=== PATIENT | male | born 1965 | race Caucasian/White ===

== ENCOUNTER 2016-06-30 22:41 | Emergency (ER) | payer MEDICARE ==
[2016-06-30 22:41] VITALS: BMI 35.2
[2016-06-30 23:04] VITALS: BP 126/87; PULSE 67; RESP 20; TEMP 98.1
[2016-06-30] MEDS ORDERED: Sodium Chloride 0.9% 1,000 ML IV ONE (23:49)
[2016-07-01 00:12] LABS: BASO % 0.6 % (0.0-2.0); EOS # 0.2 K/uL (0.0-0.7); HEMATOCRIT 41.4 % (35.0-51.0); LYMPH # 2.5 K/uL (1.0-4.3); LYMPH % 36.6 % (20.0-40.0); MEAN CELL VOLUME 86.7 fL (80.0-94.0); MEAN CORPUSCULAR HGB CONC 33.4 g/dL (33.0-37.0); MEAN PLATELET VOLUME 6.6 fL (7.2-11.7); MONO # 0.6 K/uL (0.0-0.8); MONO % 8.1 % (0.0-10.0); NRBC % 0.1 % (0.0-2.0); RED CELL DISTRIBUTION WIDTH 13.1 % (11.5-14.5); WHITE BLOOD COUNT 6.9 K/uL (4.8-10.8)
[2016-07-01 00:22] LABS: CHLORIDE 101 mmol/L (98-107); SODIUM 140 mmol/L (132-148)
[2016-07-01 00:23] LABS: POTASSIUM 4.1 mmol/L (3.6-5.2)
[2016-07-01 00:25] LABS: ALB/GLOB RATIO 1.2 (1.0-2.1); ALKALINE PHOSPHATASE 87 U/L (38-126); AST/SGOT 40 U/L (17-59); BILIRUBIN,TOTAL 0.3 mg/dL (0.2-1.3); BLOOD UREA NITROGEN 18 mg/dL (9-20); CARBON DIOXIDE 28 mmol/L (22-30); GFR AFRICAN-AMERICAN > 60; GLUCOSE,RANDOM 100 mg/dL (75-110); TOTAL PROTEIN 7.9 g/dL (6.3-8.3)
[2016-07-01 00:26] LABS: ALT/SGPT 49 U/L (21-72); CALCIUM 8.6 mg/dl (8.6-10.4)
[2016-07-01 01:44] VITALS: O2SAT 100
--- NOTE | 2016-07-01 03:56 | C.PDOC ---
History Of Present Illness 50 year old male patient presents to the ED c/o blood in stool once a day for 3 days. Patient denies nausea, vomiting, diarrhea, fever, chills, or any other complaints. Chief Complaint (Nursing): GI Problem History Per: Patient History/Exam Limitations: no limitations Onset/Duration Of Symptoms: Days Current Symptoms Are (Timing): Still Present Number Of Bleeding Episodes: Multiple: (x1 a day for 3 days) Severity: Mild Recent travel outside of the [place]: No Past Medical History Reviewed: Historical Data, Nursing Documentation, Vital Signs Vital Signs: Last Vital Signs Temp 98.1 F 06/30/16 22:58 Pulse 67 06/30/16 22:58 Resp 20 07/01/16 01:43 BP 126/87 06/30/16 22:58 Pulse Ox 100 07/01/16 03:58 - Medical History PMH: Anxiety, Depression Family History: States: Unknown Family Hx - Social History Hx Alcohol Use: Yes Hx Substance Use: No - Immunization History Hx Tetanus Toxoid Vaccination: No Hx Influenza Vaccination: No Hx Pneumococcal Vaccination: No Review Of Systems Except As Marked, All Systems Reviewed And Found Negative. Constitutional: Negative for: Fever, Chills Gastrointestinal: Positive for: Other (Blood in stool). Negative for: Nausea, Vomiting, Diarrhea Physical Exam - Physical Exam Appears: Non-toxic, No Acute Distress Skin: Warm, Dry Head: Atraumatic, Normacephalic Eye(s): bilateral: Normal Inspection Cardiovascular: Rhythm Regular, No Murmur Respiratory: Normal Breath Sounds, No Rales, No Rhonchi, No Wheezing Gastrointestinal/Abdominal: Soft Rectal: Normal Exam Neurological/Psych: Oriented x3, Normal Speech, Normal Cognition ED Course And Treatment - Laboratory Results Result Diagrams: 07/01/16 00:08 07/01/16 00:08 O2 Sat by Pulse Oximetry: 100 (Room air) Pulse Ox Interpretation: Normal Medical Decision Making Medical Decision Making: Plans: -IV Fluids -Reassess and disposition On reassessment, patient is resting comfortably, and is in no acute distress. Patient was instructed to follow up with physician/clinic in 1-2 days for further evaluation Disposition - Disposition Referrals: Pasha Branham, [Non-Staff] - Disposition: HOME/ ROUTINE Disposition Time: 12:40 Condition: GOOD Additional Instructions: Thank you for letting us take care of you today. Your provider was Dr. Quiros. You were treated for reported blood in stool. The emergency medical care you received today was directed at your acute symptoms. If you were prescribed any medication, please fill it and take as directed. It may take several days for your symptoms to resolve. Return to the Emergency Department if your symptoms worsen, do not improve, or if you have any other problems. Please contact your doctor or call one of the physicians/clinics you have been referred to that are listed on the Patient Visit Information form that is included in your discharge packet. Bring any paperwork you were given at discharge with you along with any medications you are taking to your follow up visit. Our treatment cannot replace ongoing medical care by a primary care provider (PCP) outside of the emergency department. Thank you for allowing the [email or web address] team to be part of your care today. Follow up with your primary doctor this week for re-evaluation. - Clinical Impression Clinical Impression: Hematochezia - Scribe Statement The provider has reviewed the documentation as recorded by the Madeline schroeder Provider Attestation: Car schroeder All medical record entries made by the Madeline were at my direction and personally dictated by me. I have reviewed the chart and agree that the record accurately reflects my personal performance of the history, physical exam, medical decision making, and the department course for this patient. I have also personally directed, reviewed, and agree with the discharge instructions and disposition.
== END 2016-07-01 01:43 | disposition home or self-care (01) ==
LOC: C.ER 22:41
DX: K92.1 Melena (principal)

== ENCOUNTER 2018-05-16 04:31 | Inpatient (IN) | payer MEDICARE ==
[2018-05-16 04:31] VITALS: BMI 35.2
[2018-05-16] MEDS ORDERED: Sodium Chloride 0.9% 1,000 ML IV ONE (05:13)
--- NOTE | 2018-05-16 05:15 | C.PDOC ---
History Of Present Illness 52 year old male presents to the ED c/o RLQ abdominal pain associated with nausea for the past 3 days. Patient also reports feeling some chest discomfort due to his abdominal pain. Patient denies fever, chills, vomit, diarrhea, dysur ia, hematuria, weakness, numbness. Time Seen by Provider: 05/16/18 05:02 Chief Complaint (Nursing): Abdominal Pain History Per: Patient History/Exam Limitations: no limitations Onset/Duration Of Symptoms: Days (3) Current Symptoms Are (Timing): Still Present Location Of Pain/Discomfort: RLQ Radiation Of Pain To:: Chest Quality Of Discomfort: "Pain" Associated Symptoms: Nausea. denies: Vomiting, Diarrhea Recent travel outside of the [place]: No Additional History Per: Patient Past Medical History Reviewed: Historical Data, Nursing Documentation, Vital Signs Vital Signs: Last Vital Signs Temp 98.8 F 05/16/18 04:41 Pulse 77 05/16/18 04:41 Resp 16 05/16/18 04:41 BP 163/98 H 05/16/18 04:41 Pulse Ox 97 05/16/18 04:41 - Medical History PMH: Anxiety, Depression, HTN Denies: HIV, Chronic Kidney Disease Surgical History: No Surg Hx Family History: States: Unknown Family Hx - Social History Hx Alcohol Use: No Hx Substance Use: No - Immunization History Hx Tetanus Toxoid Vaccination: No Hx Influenza Vaccination: No Hx Pneumococcal Vaccination: No Review Of Systems Constitutional: Negative for: Fever, Chills Cardiovascular: Positive for: Chest Pain. Negative for: Palpitations Respiratory: Negative for: Shortness of Breath Gastrointestinal: Positive for: Nausea, Abdominal Pain. Negative for: Vomiting Musculoskeletal: Negative for: Back Pain Skin: Negative for: Rash Neurological: Negative for: Weakness, Numbness Physical Exam - Physical Exam Appears: Non-toxic, No Acute Distress Skin: Normal Color, Warm, Dry Head: Atraumatic, Normacephalic Eye(s): bilateral: Normal Inspection Oral Mucosa: Moist Neck: Normal ROM, Supple Chest: Symmetrical Cardiovascular: Rhythm Regular, No Friction Rub, No Murmur Respiratory: Normal Breath Sounds, No Rales, No Rhonchi, No Wheezing Gastrointestinal/Abdominal: Bowel Sounds (active), Soft, Tenderness (Mild RLQ), No Guarding, No Rebound Back: No CVA Tenderness Extremity: Normal ROM, No Tenderness, No Swelling Neurological/Psych: Oriented x3, Normal Speech, Normal Cognition Gait: Steady ED Course And Treatment - Laboratory Results Result Diagrams: 05/16/18 05:31 05/16/18 05:31 O2 Sat by Pulse Oximetry: 97 (On RA) Pulse Ox Interpretation: Normal Medical Decision Making Medical Decision Making: Plan: * EKG * CXR * Labs * Pepcid 20 mg IVP * IV fluids * Toradol 30 mg IVP * Zofran 4 mg IVP * UA Disposition - Disposition Disposition Time: 07:00 Condition: STABLE Forms: [facility] (Slovenian) - Clinical Impression Clinical Impression: Abdominal pain - PA / [employer] / Resident Statement MD/DO has reviewed & agrees with the documentation as recorded. - Scribe Statement The provider has reviewed the documentation as recorded by the Scribe Dwight Magallon All medical record entries made by the Scribe were at my direction and personally dictated by me. I have reviewed the chart and agree that the record accurately reflects my personal performance of the history, physical exam, medical decision making, and the department course for this patient. I have also personally directed, reviewed, and agree with the discharge instructions and disposition. Physician Patient Turnover Patient Signed Over To: Augusta Alexander Handoff Comments: Pending CT scan and re-eval
[2018-05-16] MEDS ORDERED: Sodium Chloride 0.9% 1,000 ML ONE (05:32)
[2018-05-16 05:33] LABS: BASO % 0.4 % (0.0-2.0); EOS # 0.2 K/uL (0.0-0.7); EOS % 2.6 % (0.0-4.0); HEMOGLOBIN 13.7 g/dL (12.0-18.0); LYMPH # 1.4 K/uL (1.0-4.3); LYMPH % 18.3 % (20.0-40.0); MEAN CELL VOLUME 87.2 fL (80.0-94.0); MEAN CORPUSCULAR HEMOGLOBIN 30.2 pg (27.0-31.0); MEAN CORPUSCULAR HGB CONC 34.6 g/dL (33.0-37.0); MEAN PLATELET VOLUME 6.2 fL (7.2-11.7); MONO # 0.7 K/uL (0.0-0.8); MONO % 8.8 % (0.0-10.0); NEUT # 5.4 K/uL (1.8-7.0); NEUT % 69.9 % (50.0-75.0); NRBC % 0.1 % (0.0-2.0); RBC 4.53 Mil/uL (4.40-5.90); RED CELL DISTRIBUTION WIDTH 13.2 % (11.5-14.5); WHITE BLOOD COUNT 7.7 K/uL (4.8-10.8)
[2018-05-16 05:42] LABS: URINE BILIRUBIN NEGATIVE (NEGATIVE); URINE CLARITY Hazy (Clear); URINE COLOR Yellow (YELLOW); URINE GLUCOSE (UA) NORMAL (Normal); URINE LEUKOCYTE ESTERASE NEG Leu/uL (Negative); URINE PROTEIN NEGATIVE (NEGATIVE); URINE UROBILINOGEN NORMAL mg/dL (0.2-1.0)
[2018-05-16 05:47] LABS: ALB/GLOB RATIO 1.3 (1.0-2.1); ALBUMIN 4.4 g/dL (3.5-5.0); ALT/SGPT 63 U/L (21-72); AST/SGOT 42 U/L (17-59); BLOOD UREA NITROGEN 17 mg/dL (9-20); GFR NON-AFRICAN AMERICAN > 60; LIPASE 92 U/L (23-300)
[2018-05-16 05:48] LABS: URINE BLOOD NEGATIVE (NEGATIVE)
[2018-05-16] MEDS ORDERED: Morphine 4 MG/ML VIAL IV STA (06:44)
[2018-05-16] MEDS ORDERED: Morphine 4 MG/ML VIAL ONE ×2 (07:01→11:16)
[2018-05-16] MEDS ORDERED: Iohexol 240 (50 ml) PO STA (08:19)
[2018-05-16] MEDS ORDERED: Iohexol 240 (50 ml) ONE (08:29)
[2018-05-16] MEDS ORDERED: Iodixanol 320 MG/ML 100 ML BOTTLE IV ONE (09:55)
--- NOTE | 2018-05-16 11:28 | CT ---
Date of service: 05/16/2018 PROCEDURE: CT Abdomen and Pelvis with contrast HISTORY: RLQ pain COMPARISON: None. TECHNIQUE: Contrast dose: 100 mL Visipaque 320 Radiation dose: Total exam DLP = 1112.66 mGy-cm. This CT exam was performed using one or more of the following dose reduction techniques: Automated exposure control, adjustment of the mA and/or kV according to patient size, and/or use of iterative reconstruction technique. FINDINGS: LOWER THORAX: Unremarkable. LIVER: Unremarkable. No gross lesion or ductal dilatation. GALLBLADDER AND BILE DUCTS: Unremarkable. PANCREAS: Unremarkable. No gross lesion or ductal dilatation. SPLEEN: Unremarkable. ADRENALS: Unremarkable. No mass. KIDNEYS AND URETERS: Cortical scar upper pole right kidney common nonspecific. Nonspecific 11 mm rounded low-attenuation lesion lower pole right kidney, 12 Hounsfield units attenuation. Probable cyst. No renal calculus. No hydronephrosis. VASCULATURE: Unremarkable. No aortic aneurysm. No aortic atherosclerotic calcification or mural plaque present. BOWEL: The appendix is markedly distended up to a diameter of approximately 24 mm. There is fluid and gas within the appendiceal lumen. The wall of the appendix is circumferentially thickened. Periappendiceal fluid and inflammatory change is noted. There is circumferential mural thickening of the terminal ileum, most likely reactive secondary to the adjacent abnormal appendix. There is no bowel obstruction. No other abnormal bowel loops are appreciated. There is no periappendiceal abscess. There is no free intraperitoneal air. APPENDIX: As above PERITONEUM: Unremarkable. No free fluid. No free air. LYMPH NODES: Several mildly enlarged lymph nodes are seen in the gastrohepatic ligament common nonspecific. No generalized retroperitoneal or pelvic lymphadenopathy is seen. Shotty subcentimeter nodes are seen in the small bowel mesenteric and medial to the cecum/ascending colon, likely reactive. BLADDER: Nondistended REPRODUCTIVE: Normal prostate BONES: No acute fracture. OTHER FINDINGS: None. IMPRESSION: Findings consistent with acute uncomplicated appendicitis. No abscess or free air. Presumed reactive changes are noted in the terminal ileum. Incidentally noted is the presence of several mildly enlarged lymph nodes in the gastrohepatic ligament, of uncertain significance. No other acute abnormality. Minor findings as above.
[2018-05-16] MEDS ORDERED: Piperacillin/Tazobact 3.375 gm 100 ML IV STA (11:31)
[2018-05-16] MEDS ORDERED: Piperacillin/Tazobact 3.375 gm 100 ML IVPB ONE ×2 (11:44→16:12)
[2018-05-16] MEDS ORDERED: Morphine 4 MG/ML VIAL IVP PRN (12:38)
[2018-05-16] MEDS ORDERED: Lactated Ringer's 1,000 ML IV SCH ×2 (12:45→18:30)
--- NOTE | 2018-05-16 12:45 | CP.PCM.CON ---
<Kay Melendrez - Last Filed: 05/16/18 13:10> History of Present Illness - History of Present Illness History of Present Illness: General Surgery Dr. Davenport 52 y/o M w/ PMHx HTN, hypoglycemia, anxiety/depression presents to the ED c/o RLQ abd pain. Pt reports pain x3days, non-radiating and constant. Pt admits to similar pain ~20yrs ago when pt was Dx w/ early acute appendicitis and treated conservatively w/ Abx. At that time, pt was instructed to return to the ED if pain should ever return and it never did. Last night pt decided pain was too much and came to the ED for further evaluation. Pt admits to assoc nausea and decreased appetite. Denies F/C, CP, SOB, reflux, vomiting, D/C, dysuria. PMHx: see above Meds: ASA 81mg; pt currently not taking psych and HTN meds due to change in location and new insurance ALL: naproxen PSHx: denies SHx: smokes cigars 2-3/per week; denies EtOH, drug use FHx: noncontributory Review of Systems - Review of Systems All systems: reviewed and no additional remarkable complaints except (see HPI) Past Patient History - Infectious Disease Hx of Infectious Diseases: None - Past Medical History & Family History Past Medical History?: Yes - Past Social History Smoking Status: Current Some Days Smoker - CARDIAC Hx Hypertension: Yes - PULMONARY Hx Respiratory Disorders: No - NEUROLOGICAL Hx Neurological Disorder: No - HEENT Other/Comment: Left eye blind - RENAL Hx Chronic Kidney Disease: No - ENDOCRINE/METABOLIC Hx Endocrine Disorders: No - HEMATOLOGICAL/ONCOLOGICAL Hx Human Immunodeficiency Virus (HIV): No - INTEGUMENTARY Hx Dermatological Problems: No - MUSCULOSKELETAL/RHEUMATOLOGICAL Hx Falls: No - GASTROINTESTINAL Hx Gastrointestinal Disorders: No - GENITOURINARY/GYNECOLOGICAL Hx Genitourinary Disorders: No - PSYCHIATRIC Hx Anxiety: Yes Hx Depression: Yes Hx Substance Use: No - SURGICAL HISTORY Hx Surgeries: Yes Other/Comment: left foot sx - ANESTHESIA Hx Anesthesia: Yes Hx Anesthesia Reactions: No Hx Malignant Hyperthermia: No Meds Allergies/Adverse Reactions: Allergies Allergy/AdvReac Type Severity Reaction Status Date / Time naproxen Allergy Verified 12/01/15 21:37 Physical Exam - Constitutional Appears: Non-toxic, No Acute Distress - Head Exam Head Exam: NORMAL INSPECTION - Eye Exam Eye Exam: Normal appearance - ENT Exam ENT Exam: Mucous Membranes Moist - Respiratory Exam Respiratory Exam: NORMAL BREATHING PATTERN. absent: Accessory Muscle Use, Respiratory Distress - Cardiovascular Exam Cardiovascular Exam: REGULAR RHYTHM. absent: Bradycardia, Tachycardia - GI/Abdominal Exam GI & Abdominal Exam: Distended (mild, obese), Soft, Tenderness (RLQ TTP). absent: Firm, Guarding, Rebound, Rigid - Expanded GI/Abdominal Exam Expanded Expanded GI & Abdominal Exam: Rovsing's Sign, McBurney's Point Tenderness. absent: Obturator Sign, Psoas Sign - Extremities Exam Extremities exam: Positive for: normal inspection - Neurological Exam Neurological exam: Alert, Oriented x3 - Psychiatric Exam Psychiatric exam: Normal Affect, Normal Mood - Skin Skin Exam: Dry, Intact, Normal Color, Warm Results - Vital Signs Recent Vital Signs: Last Vital Signs Temp 98.8 F 05/16/18 04:41 Pulse 60 05/16/18 11:05 Resp 18 05/16/18 11:05 BP 108/67 05/16/18 11:05 Pulse Ox 98 05/16/18 11:05 - Labs Result Diagrams: 05/16/18 05:31 05/16/18 05:31 Labs: Laboratory Results - last 24 hr 05/16/18 05/16/18 05/16/18 05:31 05:31 05:37 WBC 7.7 RBC 4.53 Hgb 13.7 Hct 39.5 MCV 87.2 MCH 30.2 MCHC 34.6 RDW 13.2 Plt Count 191 MPV 6.2 L Neut % (Auto) 69.9 Lymph % (Auto) 18.3 L Cochran % (Auto) 8.8 Eos % (Auto) 2.6 Baso % (Auto) 0.4 Neut # (Auto) 5.4 Lymph # (Auto) 1.4 Cochran # (Auto) 0.7 Eos # (Auto) 0.2 Baso # (Auto) 0.0 Sodium 137 Potassium 3.9 Chloride 102 Carbon Dioxide 26 Anion Gap 13 BUN 17 Creatinine 0.7 L Est GFR ( Amer) > 60 Est GFR (Non-Af Amer) > 60 Random Glucose 111 H Calcium 9.0 Total Bilirubin 0.8 AST 42 ALT 63 Alkaline Phosphatase 109 Total Protein 7.9 Albumin 4.4 Globulin 3.4 Albumin/Globulin Ratio 1.3 Lipase 92 Urine Color Yellow Urine Clarity Hazy Urine pH 5.0 Ur Specific Delta 1.025 Urine Protein Negative Urine Glucose (UA) Normal Urine Ketones Negative Urine Blood Negative Urine Nitrate Negative Urine Bilirubin Negative Urine Urobilinogen Normal Ur Leukocyte Esterase Neg Urine WBC (Auto) 1 Urine RBC (Auto) 1 - Imaging and Cardiology CT scan - abdomen Status: Image reviewed by me, Report reviewed by me Assessment & Plan - Assessment and Plan (Free Text) Assessment: 52 y/o M w/ acute on chronic appendicitis Plan: - NPO - IVF - IV Abx - pain management - anti-emetic - monitor accuchecks for hypoglycemia - encourage OOB to chair/Amb Pt discussed w/ Dr. Ethel Melendrez DO PGY3 <Alfred Davenport - Last Filed: 05/17/18 22:03> Meds - Medications Medications: Current Medications Piperacillin Sod/Tazobactam (Sod 3.375 gm/ Sodium Chloride) 100 mls @ 200 mls/h r IVPB Q6H [facility]; Protocol Last Admin: 05/17/18 19:07 Dose: 200 mls/hr Lactated Ringer's (Lactated Ringer's) 1,000 mls @ 125 mls/hr IV .Q8H MARCELO Last Admin: 05/17/18 19:08 Dose: 125 mls/hr Morphine Sulfate (Morphine) 4 mg IVP Q4 PRN PRN Reason: Pain, severe (8-10) Last Admin: 05/17/18 21:40 Dose: 4 mg Ondansetron HCl (Zofran Inj) 4 mg IVP Q4 PRN PRN Reason: Nausea/Vomiting Last Admin: 05/17/18 08:24 Dose: 4 mg Oxycodone/Acetaminophen (Percocet 5/325 Mg Tab) 1 tab PO Q4H PRN PRN Reason: Pain, moderate (4-7) Stop: 05/19/18 18:30 Results - Vital Signs Recent Vital Signs: Last Vital Signs Temp 99.3 F 05/17/18 15:30 Pulse 92 H 05/17/18 15:30 Resp 20 05/17/18 15:30 BP 126/77 05/17/18 15:30 Pulse Ox 95 05/17/18 15:30 - Labs Result Diagrams: 05/17/18 08:06 05/17/18 08:06 Labs: Laboratory Results - last 24 hr 05/17/18 05/17/18 05/17/18 01:57 06:17 08:06 WBC 9.6 RBC 4.24 L Hgb 12.6 Hct 37.3 MCV 88.0 MCH 29.8 MCHC 33.8 RDW 13.0 Plt Count 207 MPV 6.7 L Sodium Potassium Chloride Carbon Dioxide Anion Gap BUN Creatinine Est GFR ( Amer) Est GFR (Non-Af Amer) POC Glucose (mg/dL) 165 H 137 H Random Glucose Calcium Phosphorus Magnesium 05/17/18 05/17/18 08:06 11:02 WBC RBC Hgb Hct MCV MCH MCHC RDW Plt Count MPV Sodium 133 Potassium 3.8 Chloride 99 Carbon Dioxide 26 Anion Gap 12 BUN 13 Creatinine 0.9 Est GFR ( Amer) > 60 Est GFR (Non-Af Amer) > 60 POC Glucose (mg/dL) 124 H Random Glucose 142 H D Calcium 8.4 L Phosphorus 3.7 Magnesium 1.8 Attending/Attestation - Attestation I have personally seen and examined this patient.: Yes I have fully participated in the care of the patient.: Yes I have reviewed all pertinent clinical information: Yes Notes (Text): Pt was seen and examined at bedside Agree with above note and assessment Pt with abdominal pain and Nausea Abdomen: Soft, Distended, Tender in lower abdomen Labs and Radiology reviewed Ass: Acute on Chronic Appendicitis, Morbid Obesity Plan : NPO, IVF OR for Lap Appendectomy and CHRISTINA Consent IV antibiotics Plan d.w pt in detail. Risk and benefit explained in detail.
[2018-05-16] MEDS: Piperacillin/Tazobact 3.375 GM in Sodium Chloride 100 ML IVPB SCH ×2 (12:54→18:45)
[2018-05-16 13:51] LABS: INR 1.1; PROTHROMBIN TIME 12.5 SECONDS (9.7-12.2)
--- NOTE | 2018-05-16 14:26 | CP.PCM.HP ---
Past Patient History - Infectious Disease Hx of Infectious Diseases: None - Past Medical History & Family History Past Medical History?: Yes - Past Social History Smoking Status: Current Some Days Smoker - CARDIAC Hx Hypertension: Yes - PULMONARY Hx Respiratory Disorders: No - NEUROLOGICAL Hx Neurological Disorder: No - HEENT Other/Comment: Left eye blind - RENAL Hx Chronic Kidney Disease: No - ENDOCRINE/METABOLIC Hx Endocrine Disorders: No - HEMATOLOGICAL/ONCOLOGICAL Hx Human Immunodeficiency Virus (HIV): No - INTEGUMENTARY Hx Dermatological Problems: No - MUSCULOSKELETAL/RHEUMATOLOGICAL Hx Falls: No - GASTROINTESTINAL Hx Gastrointestinal Disorders: No - GENITOURINARY/GYNECOLOGICAL Hx Genitourinary Disorders: No - PSYCHIATRIC Hx Anxiety: Yes Hx Depression: Yes Hx Substance Use: No - SURGICAL HISTORY Hx Surgeries: Yes Other/Comment: left foot sx - ANESTHESIA Hx Anesthesia: Yes Hx Anesthesia Reactions: No Hx Malignant Hyperthermia: No Meds Allergies/Adverse Reactions: Allergies Allergy/AdvReac Type Severity Reaction Status Date / Time naproxen Allergy Verified 12/01/15 21:37 Physical Exam - Constitutional Appears: Well - Head Exam Head Exam: ATRAUMATIC, NORMAL INSPECTION, NORMOCEPHALIC - Eye Exam Eye Exam: EOMI, Normal appearance, PERRL Pupil Exam: NORMAL ACCOMODATION, PERRL - ENT Exam ENT Exam: Mucous Membranes Moist, Normal Exam - Neck Exam Neck exam: Positive for: Normal Inspection - Respiratory Exam Respiratory Exam: Decreased Breath Sounds - Cardiovascular Exam Cardiovascular Exam: REGULAR RHYTHM, +S1, +S2 - GI/Abdominal Exam GI & Abdominal Exam: Diminished Bowel Sounds, Soft - Rectal Exam Rectal Exam: Deferred Results - Vital Signs Recent Vital Signs: Last Vital Signs Temp 98.8 F 05/16/18 13:00 Pulse 68 05/16/18 13:00 Resp 20 05/16/18 13:00 BP 146/81 05/16/18 13:00 Pulse Ox 96 05/16/18 13:00 - Labs Result Diagrams: 05/16/18 05:31 05/16/18 05:31 Labs: Laboratory Results - last 24 hr 05/16/18 05/16/18 05/16/18 05:31 05:31 05:37 WBC 7.7 RBC 4.53 Hgb 13.7 Hct 39.5 MCV 87.2 MCH 30.2 MCHC 34.6 RDW 13.2 Plt Count 191 MPV 6.2 L Neut % (Auto) 69.9 Lymph % (Auto) 18.3 L Gentry % (Auto) 8.8 Eos % (Auto) 2.6 Baso % (Auto) 0.4 Neut # (Auto) 5.4 Lymph # (Auto) 1.4 Gentry # (Auto) 0.7 Eos # (Auto) 0.2 Baso # (Auto) 0.0 PT INR APTT Sodium 137 Potassium 3.9 Chloride 102 Carbon Dioxide 26 Anion Gap 13 BUN 17 Creatinine 0.7 L Est GFR ( Amer) > 60 Est GFR (Non-Af Amer) > 60 Random Glucose 111 H Calcium 9.0 Total Bilirubin 0.8 AST 42 ALT 63 Alkaline Phosphatase 109 Total Protein 7.9 Albumin 4.4 Globulin 3.4 Albumin/Globulin Ratio 1.3 Lipase 92 Urine Color Yellow Urine Clarity Hazy Urine pH 5.0 Ur Specific Heron 1.025 Urine Protein Negative Urine Glucose (UA) Normal Urine Ketones Negative Urine Blood Negative Urine Nitrate Negative Urine Bilirubin Negative Urine Urobilinogen Normal Ur Leukocyte Esterase Neg Urine WBC (Auto) 1 Urine RBC (Auto) 1 Blood Type Antibody Screen 05/16/18 05/16/18 13:31 13:31 WBC RBC Hgb Hct MCV MCH MCHC RDW Plt Count MPV Neut % (Auto) Lymph % (Auto) Gentry % (Auto) Eos % (Auto) Baso % (Auto) Neut # (Auto) Lymph # (Auto) Gentry # (Auto) Eos # (Auto) Baso # (Auto) PT 12.5 H INR 1.1 APTT 33 Sodium Potassium Chloride Carbon Dioxide Anion Gap BUN Creatinine Est GFR ( Amer) Est GFR (Non-Af Amer) Random Glucose Calcium Total Bilirubin AST ALT Alkaline Phosphatase Total Protein Albumin Globulin Albumin/Globulin Ratio Lipase Urine Color Urine Clarity Urine pH Ur Specific Heron Urine Protein Urine Glucose (UA) Urine Ketones Urine Blood Urine Nitrate Urine Bilirubin Urine Urobilinogen Ur Leukocyte Esterase Urine WBC (Auto) Urine RBC (Auto) Blood Type O POSITIVE Antibody Screen Negative
--- NOTE | 2018-05-16 15:11 | RAD ---
Date of service: 05/16/2018 PROCEDURE: CHEST RADIOGRAPH, 1 VIEW HISTORY: abd pain and chest pain COMPARISON: 12/01/2015 FINDINGS: LUNGS: Clear. PLEURA: No pneumothorax or pleural fluid seen. CARDIOVASCULAR: No aortic atherosclerotic calcification present. Normal. OSSEOUS STRUCTURES: No significant abnormalities. VISUALIZED UPPER ABDOMEN: Normal. OTHER FINDINGS: None. IMPRESSION: No active disease.
[2018-05-16] MEDS ORDERED: Rocuronium 10 mg/ml (5 ml) ONE (16:01)
[2018-05-16] MEDS ORDERED: Succinylcholine Chloride 20 mg/ml Syr (5 ml) IV ONE (16:01)
[2018-05-16] MEDS ORDERED: Propofol 10 mg/ml Inj (20 ML) ONE ×2 (16:01→17:30)
[2018-05-16] MEDS ORDERED: Lidocaine/Epinephrine 1% 1:100000 10 ML IJ ONE (16:24)
[2018-05-16] MEDS ORDERED: Bupivacaine 0.25% 20 ML INJ IJ ONE (16:24)
--- NOTE | 2018-05-16 18:33 | PCM.SURG1 ---
Surgeon's Initial Post Op Note - Surgeon's Notes Surgeon: Dr. Davenport Aircraft Electrician: Dr. Melendrez PGY3 Type of Anesthesia: General Endo Pre-Operative Diagnosis: acute on chronic appendictis Operative Findings: see dictation Post-Operative Diagnosis: same Operation Performed: laparoscopic appendectomy Specimen/Specimens Removed: appendix, partial cecum Estimated Blood Loss: EBL {In ML}: 50 Blood Products Given: N/A Drains Used: Lloyd Post-Op Condition: Good Date of Surgery/Procedure: 05/16/18 Time of Surgery/Procedure: 16:20
[2018-05-16] MEDS: Lactated Ringer's 1,000 ML IV SCH (19:30)
[2018-05-17] MEDS: Lactated Ringer's 1,000 ML IV SCH ×5 (00:02→19:08)
[2018-05-17] MEDS: Piperacillin/Tazobact 3.375 GM in Sodium Chloride 100 ML IVPB SCH ×4 (00:03→19:07)
[2018-05-17] MEDS: Morphine 4 MG/ML VIAL IVP PRN ×4 (03:40→21:40)
--- NOTE | 2018-05-17 04:53 | OP ---
PROCEDURE DATE: 05/16/2018 PREOPERATIVE DIAGNOSES: 1. Acute on chronic appendicitis. 2. Dilated appendix, possible appendicular abscess. 3. Peritoneal adhesions, post inflammatory. 4. Morbid obesity. POSTOPERATIVE DIAGNOSES: 1. Acute on chronic phlegmonous appendicitis. 2. Appendicular abscess. 3. Extensive peritoneal adhesions, post inflammatory due to previous appendicitis episode. PROCEDURES DONE: 1. Laparoscopic mobilization of right colon. 2. Laparoscopic drainage of appendicular abscess. 3. Laparoscopic appendectomy. 4. Laparoscopic partial cecectomy. 5. Laparoscopic extensive enterolysis and lysis of adhesions. SURGEON: Alfred Davenport MD MOLD UNLOADER: Kay Melendrez DO, PGY-3 resident. ANESTHESIA: General endotracheal tube anesthesia. ESTIMATED BLOOD LOSS: Around 50 mL. DRAINS: A 19-Monegasque Lloyd drain was placed. COMPLICATIONS: None. INTRAOPERATIVE FINDINGS: The patient had acute on chronic appendicitis with appendicular abscess. The patient also had extensive post-inflammatory adhesions. It took approximately 60 to 80 minutes extra for the routine procedure and mobilization of the right colon was done in order to identify the appendix as well as the ileocecal junction and the appendicular base, and the appendicular abscess was drained. DESCRIPTION OF PROCEDURE: On intraoperative steps, this is a 52-year-old male who was diagnosed with acute appendicitis and dilated appendix, and the patient had previous appendicitis episode 20 years ago. The patient was managed conservatively. The patient was consented for the laparoscopic appendectomy, possible open. Brought to the OR, laid supine on the operating table. After induction of the anesthesia, the abdomen was prepped and draped in the usual sterile fashion. A supraumbilical transverse incision was made using open technique. Peritoneal cavity was entered. Pneumo was created. Another 5-mm and 12-mm ports were placed in the left lower quadrant as well as suprapubic region. The patient was found to have a large phlegmonous mass in the right lower quadrant of the ileum, cecum, appendix and omentum, and partial lysis of adhesion was done. Another extra 5-mm port was placed to facilitate the dissection. Now, the ileum was dissected free from the phlegmonous mass, and the right side of the mobilization of the colon was done in order to identify the anatomy. After the mobilization of the cecum, ascending colon, the whole mass was mobilized medially. Now, the appendicular base as well as appendix was identified. The patient had a big abscess and during the dissection, the abscess was draining and as this was completely evacuated. The suction irrigation of the abscess cavity was done. After that, again enterolysis and extensive lysis of adhesion was done to dissect the appendix of the retroperitoneum as well as the cecum and the ileum. After proper enterolysis and lysis of adhesions, the mesoappendix was resected with a Harmonic scalpel. The appendicular base was extremely thickened and edematous. Now, the decision was made to resect the part of the cecum in order to get the normal healthy margin. Partial cecectomy was done. The appendix was taken out with part of the cecum. It was sent off the table for the pathology. There was a proper hemostasis in each and every part of the procedure. A 19-Monegasque Lloyd drain was placed. Again, suction irrigation of the pelvis, periappendicular area as well as the perihepatic area was done. All the fluid was suctioned out. All the ports were taken under vision. Pneumo was deflated. The drain was secured to the skin. The umbilical port site was closed in two layers, the fascia with 0-Vicryl interrupted sutures and skin with a 4-0 Monocryl. Then, dry sterile dressing was applied. The patient tolerated the procedure well. Count of instrument and gauze was correct. There was no apparent complication. The patient was extubated in OR, sent to the postanesthesia care unit in stable condition. Alfred Davenport MD [place]
[2018-05-17 08:17] LABS: HEMOGLOBIN 12.6 g/dL (12.0-18.0); MEAN CORPUSCULAR HEMOGLOBIN 29.8 pg (27.0-31.0); MEAN CORPUSCULAR HGB CONC 33.8 g/dL (33.0-37.0); MEAN PLATELET VOLUME 6.7 fL (7.2-11.7); RBC 4.24 Mil/uL (4.40-5.90); WHITE BLOOD COUNT 9.6 K/uL (4.8-10.8)
[2018-05-17 08:28] LABS: BLOOD UREA NITROGEN 13 mg/dL (9-20); CALCIUM 8.4 mg/dl (8.6-10.4); GFR NON-AFRICAN AMERICAN > 60
--- NOTE | 2018-05-17 09:26 | CP.PCM.PN ---
Subjective - Date & Time of Evaluation Date of Evaluation: 05/17/18 Time of Evaluation: 09:18 - Subjective Subjective: Surgery: Dr. Davenport Pt seen and examined. s/p lap appy; POD#1. States he feels well and pain is well controlled. Pt admits to tolerating CLD and denies nausea/vomiting. Denies flatus/BM or ambulation. Urinating w/o difficulty. Objective - Vital Signs/Intake and Output Vital Signs (last 24 hours): Temp Pulse Resp BP Pulse Ox 99.5 F 89 20 114/73 94 L 05/17/18 09:12 05/17/18 09:12 05/17/18 09:12 05/17/18 09:12 05/17/18 09:12 Intake and Output: 05/17/18 05/17/18 06:59 18:59 Intake Total 2352.5 Output Total 690 Balance 1662.5 - Medications Medications: Current Medications Piperacillin Sod/Tazobactam (Sod 3.375 gm/ Sodium Chloride) 100 mls @ 200 m ls/hr IVPB Q6H [facility]; Protocol Last Admin: 05/17/18 05:59 Dose: 200 mls/hr Lactated Ringer's (Lactated Ringer's) 1,000 mls @ 125 mls/hr IV .Q8H [facility] Last Admin: 05/17/18 08:26 Dose: 125 mls/hr Morphine Sulfate (Morphine) 4 mg IVP Q4 PRN PRN Reason: Pain, severe (8-10) Last Admin: 05/17/18 08:19 Dose: 4 mg Ondansetron HCl (Zofran Inj) 4 mg IVP Q4 PRN PRN Reason: Nausea/Vomiting Last Admin: 05/17/18 08:24 Dose: 4 mg Oxycodone/Acetaminophen (Percocet 5/325 Mg Tab) 1 tab PO Q4H PRN PRN Reason: Pain, moderate (4-7) Stop: 05/19/18 18:30 - Labs Labs: 05/17/18 08:06 05/17/18 08:06 PT 12.5 SECONDS (9.7-12.2) H 05/16/18 13:31 INR 1.1 05/16/18 13:31 APTT 33 SECONDS (21-34) 05/16/18 13:31 - Constitutional Appears: Well, No Acute Distress - Eye Exam Eye Exam: Normal appearance - ENT Exam ENT Exam: Mucous Membranes Moist - Respiratory Exam Respiratory Exam: NORMAL BREATHING PATTERN - Cardiovascular Exam Cardiovascular Exam: RRR - GI/Abdominal Exam GI & Abdominal Exam: Distended, Soft, Tenderness (around incision sites, dressings C/D/I. Lloyd in place with serosang output ). absent: Guarding - Neurological Exam Neurological Exam: Alert, Awake, Oriented x3 - Skin Skin Exam: Dry, Warm Assessment and Plan - Assessment and Plan (Free Text) Assessment: 52M s/p lap appy; POD#1 Plan: - cont CLD, will advance slowly as pt is slightly distended and hasn't had return of bowel function - cont ABX - monitor drain output - encourage ambulation - d/w Dr. Ethel Walton
--- NOTE | 2018-05-17 15:29 | CP.PCM.PN ---
Subjective - Date & Time of Evaluation Date of Evaluation: 05/17/18 Time of Evaluation: 11:30 - Subjective Subjective: clinically same Objective - Vital Signs/Intake and Output Vital Signs (last 24 hours): Temp Pulse Resp BP Pulse Ox 99.5 F 89 20 114/73 94 L 05/17/18 09:12 05/17/18 09:12 05/17/18 09:12 05/17/18 09:12 05/17/18 09:12 Intake and Output: 05/17/18 05/17/18 06:59 18:59 Intake Total 2352.5 1100 Output Total 690 375 Balance 1662.5 725 - Medications Medications: Current Medications Piperacillin Sod/Tazobactam (Sod 3.375 gm/ Sodium Chloride) 100 mls @ 200 mls/hr IVPB Q6H [facility]; Protocol Last Admin: 05/17/18 13:07 Dose: 200 mls/hr Lactated Ringer's (Lactated Ringer's) 1,000 mls @ 125 mls/hr IV .Q8H [facility] Last Admin: 05/17/18 09:47 Dose: Not Given Morphine Sulfate (Morphine) 4 mg IVP Q4 PRN PRN Reason: Pain, severe (8-10) Last Admin: 05/17/18 14:22 Dose: 4 mg Ondansetron HCl (Zofran Inj) 4 mg IVP Q4 PRN PRN Reason: Nausea/Vomiting Last Admin: 05/17/18 08:24 Dose: 4 mg Oxycodone/Acetaminophen (Percocet 5/325 Mg Tab) 1 tab PO Q4H PRN PRN Reason: Pain, moderate (4-7) Stop: 05/19/18 18:30 - Labs Labs: 05/17/18 08:06 05/17/18 08:06 PT 12.5 SECONDS (9.7-12.2) H 05/16/18 13:31 INR 1.1 05/16/18 13:31 APTT 33 SECONDS (21-34) 05/16/18 13:31
[2018-05-18] MEDS: Piperacillin/Tazobact 3.375 GM in Sodium Chloride 100 ML IVPB SCH ×4 (00:40→19:20)
[2018-05-18] MEDS: Lactated Ringer's 1,000 ML IV SCH ×2 (05:50→19:21)
--- NOTE | 2018-05-18 07:42 | CP.PCM.PN ---
Subjective - Date & Time of Evaluation Date of Evaluation: 05/18/18 Time of Evaluation: 07:39 - Subjective Subjective: General Surgery Dr. Davenport Pt S&E @bedside. no acute events overnight. reports improved pain though continued bloating/distention. tolerating CLD. (+)Flatus (-)BM. Objective - Vital Signs/Intake and Output Vital Signs (last 24 hours): Temp Pulse Resp BP Pulse Ox 98.8 F 97 H 94 H 142/78 91 L 05/18/18 06:25 05/18/18 06:25 05/18/18 06:25 05/18/18 06:25 05/17/18 23:20 Intake and Output: 05/18/18 05/18/18 06:59 18:59 Intake Total 1200 Output Total 90 Balance 1110 - Medications Medications: Current Medications Piperacillin Sod/Tazobactam (Sod 3.375 gm/ Sodium Chloride) 100 mls @ 200 mls/hr IVPB Q6H [facility]; Protocol Last Admin: 05/18/18 05:45 Dose: 200 mls/hr Lactated Ringer's (Lactated Ringer's) 1,000 mls @ 75 mls/hr IV .[id number] [facility] Last Admin: 05/18/18 05:50 Dose: 75 mls/hr Ondansetron HCl (Zofran Inj) 4 mg IVP Q4 PRN PRN Reason: Nausea/Vomiting Last Admin: 05/17/18 08:24 Dose: 4 mg Oxycodone/Acetaminophen (Percocet 5/325 Mg Tab) 1 tab PO Q4H PRN PRN Reason: Pain, moderate (4-7) Stop: 05/19/18 18:30 - Labs Labs: 05/17/18 08:06 05/17/18 08:06 PT 12.5 SECONDS (9.7-12.2) H 05/16/18 13:31 INR 1.1 05/16/18 13:31 APTT 33 SECONDS (21-34) 05/16/18 13:31 - Constitutional Appears: Non-toxic, No Acute Distress - Head Exam Head Exam: NORMAL INSPECTION - Eye Exam Eye Exam: Normal appearance - ENT Exam ENT Exam: Mucous Membranes Moist - Respiratory Exam Respiratory Exam: NORMAL BREATHING PATTERN. absent: Accessory Muscle Use, Respiratory Distress - Cardiovascular Exam Cardiovascular Exam: REGULAR RHYTHM. absent: Bradycardia, Tachycardia - GI/Abdominal Exam GI & Abdominal Exam: Distended (moderate), Soft, Tenderness (appropriate troy- incisional TTP). absent: Firm, Guarding, Rigid Additional comments: eccymosis surrounding umbilical port site drain w/ serosanguinous output dressings c/d/i - Extremities Exam Extremities Exam: Normal Inspection - Neurological Exam Neurological Exam: Alert, Awake, Oriented x3 - Psychiatric Exam Psychiatric exam: Normal Affect, Normal Mood - Skin Skin Exam: Dry, Intact, Normal Color, Warm Assessment and Plan - Assessment and Plan (Free Text) Assessment: 52 y/o M POD#2 s/p lap appy for acute on chronic appendicitis Plan: - monitor drain output - cont IV Abx - cont pain management - f/u diet tolerance - monitor bowel fxn - encourage OOb to chair/Amb/IS use Pt discussed w/ Dr. Ethel Melendrez DO PGY3
--- NOTE | 2018-05-18 08:16 | CP.PCM.PN ---
Subjective - Date & Time of Evaluation Date of Evaluation: 05/18/18 Time of Evaluation: 08:16 - Subjective Subjective: 52 year old male with a past medical history of hypertension, anxiety and depression presents to the hospital with right lower quadrant. He describes the pain as sharp and constant with no radiation. Per chart review, patient had similar episode 20 years ago were he was treated conservatively with antibiotics. Patient denies any chest pain, fevers, chills, headaches, dizziness, or any other complaints Medical history: htn, anxeity, depression Medications: denies Allergies: Naproxen Surery: Bunion surgery Social history: On disabilty. Denies alcohol or drug use. Objective - Vital Signs/Intake and Output Vital Signs (last 24 hours): Temp Pulse Resp BP Pulse Ox 98.8 F 97 H 94 H 142/78 91 L 05/18/18 06:25 05/18/18 06:25 05/18/18 06:25 05/18/18 06:25 05/17/18 23:20 Intake and Output: 05/18/18 05/18/18 06:59 18:59 Intake Total 1200 Output Total 90 Balance 1110 - Medications Medications: Current Medications Piperacillin Sod/Tazobactam (Sod 3.375 gm/ Sodium Chloride) 100 mls @ 200 mls/hr IVPB Q6H [facility]; Protocol Last Admin: 05/18/18 05:45 Dose: 200 mls/hr Lactated Ringer's (Lactated Ringer's) 1,000 mls @ 75 mls/hr IV .[id number] [facility] Last Admin: 05/18/18 05:50 Dose: 75 mls/hr Ondansetron HCl (Zofran Inj) 4 mg IVP Q4 PRN PRN Reason: Nausea/Vomiting Last Admin: 05/17/18 08:24 Dose: 4 mg Oxycodone/Acetaminophen (Percocet 5/325 Mg Tab) 1 tab PO Q4H PRN PRN Reason: Pain, moderate (4-7) Stop: 05/19/18 18:30 - Labs Labs: 05/17/18 08:06 05/17/18 08:06 PT 12.5 SECONDS (9.7-12.2) H 05/16/18 13:31 INR 1.1 05/16/18 13:31 APTT 33 SECONDS (21-34) 05/16/18 13:31 Assessment and Plan - Assessment and Plan (Free Text) Assessment: 52 year old male with a past medical history of hypertension, anxiety and depression admitted for appendicitis. Plan: 1.Appendicitis Abdominal ct: :Findings consistent with acute uncomplicated appendicitis. No abscess or free air. Presumed reactive changes are noted in the terminal ileum. Incidentally noted is the presence of several mildly enlarged lymph nodes in the gastrohepatic ligament, of uncertain significance. No other acute abnormality. Minor findings as above. POD#[address] Davenport following. Medications: Percocet 5/325mg 1 tab PO Q4H PRN Zosyn 3.375gm IVPB q6h [facility] 2.hx of hypertension -Patient used to take a medication, however stopped due to insurance issues. -Stable at this time. Will continue to monitor. ppx -Lovenox 40mg SC DAILY [facility] -Lactated ringers @75mls/hr All management per Dr. Yesica Han, PGY-2
[2018-05-18 08:20] VITALS: RESP 20
[2018-05-18] MEDS ORDERED: Enoxaparin 40 mg Syringe SC SCH (10:00)
[2018-05-18 11:47] LABS: HEMOGLOBIN 12.3 g/dL (12.0-18.0); MEAN CELL VOLUME 87.9 fL (80.0-94.0); MEAN CORPUSCULAR HEMOGLOBIN 30.2 pg (27.0-31.0); MEAN CORPUSCULAR HGB CONC 34.3 g/dL (33.0-37.0); RBC 4.08 Mil/uL (4.40-5.90); WHITE BLOOD COUNT 9.9 K/uL (4.8-10.8)
--- NOTE | 2018-05-18 18:49 | CP.PCM.PN ---
Subjective - Date & Time of Evaluation Date of Evaluation: 05/18/18 Time of Evaluation: 11:00 - Subjective Subjective: clinically same Objective - Vital Signs/Intake and Output Vital Signs (last 24 hours): Temp Pulse Resp BP Pulse Ox 100.2 F H 100 H 20 147/83 94 L 05/18/18 18:03 05/18/18 18:03 05/18/18 18:03 05/18/18 18:03 05/18/18 18:03 Intake and Output: 05/18/18 05/18/18 06:59 18:59 Intake Total 1200 975 Output Total 90 1550 Balance 1110 -575 - Medications Medications: Current Medications Enoxaparin Sodium (Lovenox) 40 mg SC DAILY [facility] Last Admin: 05/18/18 09:43 Dose: 40 mg Piperacillin Sod/Tazobactam (Sod 3.375 gm/ Sodium Chloride) 100 mls @ 200 mls/hr IVPB Q6H [facility]; Protocol Last Admin: 05/18/18 12:05 Dose: 200 mls/hr Lactated Ringer's (Lactated Ringer's) 1,000 mls @ 75 mls/hr IV .[id number] [facility] Last Admin: 05/18/18 05:50 Dose: 75 mls/hr Ondansetron HCl (Zofran Inj) 4 mg IVP Q4 PRN PRN Reason: Nausea/Vomiting Last Admin: 05/17/18 08:24 Dose: 4 mg Oxycodone/Acetaminophen (Percocet 5/325 Mg Tab) 1 tab PO Q4H PRN PRN Reason: Pain, moderate (4-7) Stop: 05/19/18 18:30 - Labs Labs: 05/18/18 11:26 05/17/18 08:06 PT 12.5 SECONDS (9.7-12.2) H 05/16/18 13:31 INR 1.1 05/16/18 13:31 APTT 33 SECONDS (21-34) 05/16/18 13:31
[2018-05-18] MEDS ORDERED: Albuterol-Ipratrop 3 mg / 0.5 (3 ml) UD INH PRN (19:17)
[2018-05-18] MEDS ORDERED: Simethicone 80 mg Chewtab PO PRN (19:24)
[2018-05-19] MEDS: Piperacillin/Tazobact 3.375 GM in Sodium Chloride 100 ML IVPB SCH ×3 (00:35→11:57)
[2018-05-19] MEDS: Oxycodone/Acetaminophen 5/325 mg Tab PO PRN ×3 (03:18→16:26)
[2018-05-19] MEDS: Lactated Ringer's 1,000 ML IV SCH (07:52)
--- NOTE | 2018-05-19 08:10 | CP.PCM.PN ---
Subjective - Date & Time of Evaluation Date of Evaluation: 05/19/18 Time of Evaluation: 08:07 - Subjective Subjective: SURGERY NOTE FOR DR. HEMPHILL 52M seen and examined at bedside. Patient states pain is controlled. Denies any nausea or vomiting. Tolerating regular diet. Objective - Vital Signs/Intake and Output Vital Signs (last 24 hours): Temp Pulse Resp BP Pulse Ox 98.2 F 77 20 113/60 95 05/19/18 04:39 05/19/18 04:39 05/19/18 04:39 05/19/18 04:39 05/19/18 04:39 Intake and Output: 05/19/18 05/19/18 06:59 18:59 Intake Total 800 Output Total 1335 Balance -535 - Medications Medications: Current Medications Albuterol/Ipratropium (Duoneb 3 Mg/0.5 Mg (3 Ml) Ud) 3 ml INH RQ4 PRN PRN Reason: Shortness of Breath Famotidine (Pepcid) 20 mg IVP DAILY [facility] Piperacillin Sod/Tazobactam (Sod 3.375 gm/ Sodium Chloride) 100 mls @ 200 mls/hr IVPB Q6H [facility]; Protocol Last Admin: 05/19/18 05:50 Dose: 200 mls/hr Lactated Ringer's (Lactated Ringer's) 1,000 mls @ 75 mls/hr IV .[id number] [facility] Last Admin: 05/19/18 07:52 Dose: Not Given Ondansetron HCl (Zofran Inj) 4 mg IVP Q4 PRN PRN Reason: Nausea/Vomiting Last Admin: 05/17/18 08:24 Dose: 4 mg Oxycodone/Acetaminophen (Percocet 5/325 Mg Tab) 1 tab PO Q4H PRN PRN Reason: Pain, moderate (4-7) Stop: 05/19/18 18:30 Last Admin: 05/19/18 03:18 Dose: 1 tab Simethicone (Mylicon Chew Tab) 80 mg PO Q3 PRN PRN Reason: bloating; distention - Labs Labs: 05/18/18 11:26 05/17/18 08:06 PT 12.5 SECONDS (9.7-12.2) H 05/16/18 13:31 INR 1.1 05/16/18 13:31 APTT 33 SECONDS (21-34) 05/16/18 13:31 - Constitutional Appears: Non-toxic, No Acute Distress - Respiratory Exam Respiratory Exam: Clear to Ausculation Bilateral, NORMAL BREATHING PATTERN - Cardiovascular Exam Cardiovascular Exam: REGULAR RHYTHM, +S1, +S2 - GI/Abdominal Exam GI & Abdominal Exam: Soft, Tenderness. absent: Distended, Firm, Guarding, Rigid, Rebound Additional comments: dressings CDI Drain - 35cc/12hrs serosanguinous - Neurological Exam Neurological Exam: Alert, Awake - Skin Skin Exam: Dry, Intact, Normal Color, Warm Assessment and Plan - Assessment and Plan (Free Text) Assessment: 52M s/p laparoscopic appendectomy POD#3 Plan: - continue diet - continue antibiotics - monitor drain output Further recs discuss with Dr. Ethel Rea, PGY3
--- NOTE | 2018-05-19 09:31 | CP.PCM.PN ---
Subjective - Date & Time of Evaluation Date of Evaluation: 05/19/18 Time of Evaluation: 09:27 - Subjective Subjective: Medicine Progress Note for Dr. Yesica Rodriguez. Patient seen and examined at bedside. Patient experienced some chest tightness and dizziness overnight with an elevated temp. On exam, he states that he feels that his doesn't have a fever. He denies any chest pain, SOB, or urinary symptoms. He does admit to abdominal pain at incision site when coughing. He had non-bloody diarrhea last night. Objective - Vital Signs/Intake and Output Vital Signs (last 24 hours): Temp Pulse Resp BP Pulse Ox 99.4 F 85 20 130/78 96 05/19/18 07:00 05/19/18 07:00 05/19/18 07:00 05/19/18 07:00 05/19/18 07:00 Intake and Output: 05/19/18 05/19/18 06:59 18:59 Intake Total 800 Output Total 1335 Balance -535 - Medications Medications: Current Medications Albuterol/Ipratropium (Duoneb 3 Mg/0.5 Mg (3 Ml) Ud) 3 ml INH RQ4 PRN PRN Reason: Shortness of Breath Famotidine (Pepcid) 20 mg IVP DAILY [facility] Last Admin: 05/19/18 09:10 Dose: 20 mg Piperacillin Sod/Tazobactam (Sod 3.375 gm/ Sodium Chloride) 100 mls @ 200 mls/hr IVPB Q6H [facility]; Protocol Last Admin: 05/19/18 05:50 Dose: 200 mls/hr Lactated Ringer's (Lactated Ringer's) 1,000 mls @ 75 mls/hr IV .[id number] [facility] Last Admin: 05/19/18 07:52 Dose: Not Given Ondansetron HCl (Zofran Inj) 4 mg IVP Q4 PRN PRN Reason: Nausea/Vomiting Last Admin: 05/17/18 08:24 Dose: 4 mg Oxycodone/Acetaminophen (Percocet 5/325 Mg Tab) 1 tab PO Q4H PRN PRN Reason: Pain, moderate (4-7) Stop: 05/19/18 18:30 Last Admin: 05/19/18 03:18 Dose: 1 tab Simethicone (Mylicon Chew Tab) 80 mg PO Q3 PRN PRN Reason: bloating; distention - Labs Labs: 05/18/18 11:26 05/17/18 08:06 PT 12.5 SECONDS (9.7-12.2) H 05/16/18 13:31 INR 1.1 05/16/18 13:31 APTT 33 SECONDS (21-34) 05/16/18 13:31 - Constitutional Appears: Well, Non-toxic, No Acute Distress - Head Exam Head Exam: ATRAUMATIC, NORMAL INSPECTION, NORMOCEPHALIC - Eye Exam Eye Exam: EOMI, Normal appearance - ENT Exam ENT Exam: Mucous Membranes Moist - Respiratory Exam Respiratory Exam: Clear to Ausculation Bilateral, NORMAL BREATHING PATTERN. a bsent: Accessory Muscle Use - Cardiovascular Exam Cardiovascular Exam: RRR, +S1, +S2. absent: Murmur - GI/Abdominal Exam GI & Abdominal Exam: Soft, Tenderness (At incision site. ), Normal Bowel Sounds Additional comments: dressings x3 CDI Drain: serosanguinous - Extremities Exam Extremities Exam: absent: Pedal Edema - Neurological Exam Neurological Exam: Alert, Awake, Oriented x3 - Skin Skin Exam: Dry, Intact, Normal Color, Warm Assessment and Plan - Assessment and Plan (Free Text) Assessment: 52 year old male with a past medical history of hypertension, anxiety and depression admitted for evaluation and treatment of acute appendicitis. Plan: Appendicitis Abdominal ct: :Findings consistent with acute uncomplicated appendicitis. No abscess or free air. Presumed reactive changes are noted in the terminal ileum. Incidentally noted is the presence of several mildly enlarged lymph nodes in the gastrohepatic ligament, of uncertain significance. No other acute abnormality. Minor findings as above. POD#[address] Davenport following. Medications: Percocet 5/325mg 1 tab PO Q4H PRN Zosyn 3.375gm IVPB q6h radha Simethicone 80mg PO Q3 PRN Zofran PRN Hypertension (Stable) -Patient used to take a medication, however stopped due to insurance issues. -Patient is normotensive. Will continue to monitor. Proph -Lovenox 40mg SC DAILY [facility] -Pepcid 30mg IVP Daily -Lactated ringers @75mls/hr Dispo: He is to follow up with Dr. Uzair Rodriguez tomorrow (05/20/18) at his office @2PM. He is to follow up with General Surgery (Dr. Dixon) on Friday05/26/18. He will get his drained removed then. Patient to be on a soft diet until General Surgery appointment. DC Meds: Metronadizole and Levaquin. All management per Dr. Yesica Abraham, PGY-2
--- NOTE | 2018-05-19 14:44 | CP.PCM.PN ---
Subjective - Date & Time of Evaluation Date of Evaluation: 05/19/18 Time of Evaluation: 12:15 - Subjective Subjective: clinically same Objective - Vital Signs/Intake and Output Vital Signs (last 24 hours): Temp Pulse Resp BP Pulse Ox 99.4 F 85 20 130/78 96 05/19/18 07:00 05/19/18 07:00 05/19/18 07:00 05/19/18 07:00 05/19/18 07:00 Intake and Output: 05/19/18 05/19/18 06:59 18:59 Intake Total 800 Output Total 1335 Balance -535 - Medications Medications: Current Medications Albuterol/Ipratropium (Duoneb 3 Mg/0.5 Mg (3 Ml) Ud) 3 ml INH RQ4 PRN PRN Reason: Shortness of Breath Famotidine (Pepcid) 20 mg IVP DAILY [facility] Last Admin: 05/19/18 09:10 Dose: 20 mg Piperacillin Sod/Tazobactam (Sod 3.375 gm/ Sodium Chloride) 100 mls @ 200 mls/hr IVPB Q6H [facility]; Protocol Last Admin: 05/19/18 11:57 Dose: 200 mls/hr Lactated Ringer's (Lactated Ringer's) 1,000 mls @ 75 mls/hr IV .[id number] [facility] Last Admin: 05/19/18 07:52 Dose: Not Given Ondansetron HCl (Zofran Inj) 4 mg IVP Q4 PRN PRN Reason: Nausea/Vomiting Last Admin: 05/17/18 08:24 Dose: 4 mg Oxycodone/Acetaminophen (Percocet 5/325 Mg Tab) 1 tab PO Q4H PRN PRN Reason: Pain, moderate (4-7) Stop: 05/19/18 18:30 Last Admin: 05/19/18 11:41 Dose: 1 tab Simethicone (Mylicon Chew Tab) 80 mg PO Q3 PRN PRN Reason: bloating; distention - Labs Labs: 05/18/18 11:26 05/17/18 08:06 PT 12.5 SECONDS (9.7-12.2) H 05/16/18 13:31 INR 1.1 05/16/18 13:31 APTT 33 SECONDS (21-34) 05/16/18 13:31
[2018-05-19 16:35] VITALS: BP 127/84; PULSE 73; TEMP 98.8; O2SAT 94
--- NOTE | 2018-05-19 19:46 | CARD ---
APPROVED REPORT Date of service: 05/16/2018 EKG Measurement Heart [id number] <Conclusion> Sinus rhythm with premature atrial complexes in a pattern of bigeminy Otherwise normal ECG
== END 2018-05-19 16:48 | disposition home or self-care (01) | DRG 331 ==
LOC: C.ER 04:31 → C.9E 12:15 → C.6T 13:05
PROVIDERS: ADMIT Internal Medicine Nephrology; ATTEND Internal Medicine Nephrology
PROC: 0DBH4ZZ Excision of Cecum, Percutaneous Endoscopic Approach (ICD-10-PCS; 2018-05-16)
PROC: 0DNW4ZZ Release Peritoneum, Percutaneous Endoscopic Approach (ICD-10-PCS; 2018-05-16)
PROC: 0W9G40Z Drainage of Peritoneal Cavity with Drainage Device, Percutaneous Endoscopic Approach (ICD-10-PCS; 2018-05-16)
PROC: 0DTJ4ZZ Resection of Appendix, Percutaneous Endoscopic Approach (ICD-10-PCS; principal; 2018-05-16 15:30)
DX: K35.33 Acute appendicitis with perforation, localized peritonitis, and gangrene, with abscess (principal); K66.0 Peritoneal adhesions (postprocedural) (postinfection); K63.89 Other specified diseases of intestine; I10 Essential (primary) hypertension; F17.290 Nicotine dependence, other tobacco product, uncomplicated; H54.62 Unqualified visual loss, left eye, normal vision right eye; E66.01 Morbid (severe) obesity due to excess calories; Z68.37 Body mass index [BMI] 37.0-37.9, adult